=== PATIENT | female | born 1940 | race Caucasian/White ===

== ENCOUNTER 2024-02-26 19:20 | Inpatient (IN) | payer BC, SELFPAY ==
[2024-02-26 17:02] VITALS: BP 157/110; BMI 23.3
[2024-02-26] MEDS: MORPHINE SULFATE 4 MG IV (17:12)
[2024-02-26 17:20] LABS: % Basophils 0.9 % (0-2); % Eosinophils 1.4 % (0-6); % Immature Granulocytes 0.5 % (0-0.5); % Lymphocytes 28.9 % (20.5-51.1); % Monocytes 8.8 % (1.7-9.3); % Neutrophils 59.5 % (42.2-75.2); Absolute Basophils 0.1 10^3/uL (0-0.2); Absolute Eosinophils 0.1 10^3/uL (0-0.7); Absolute Lymphocytes 2.3 10^3/uL (1.2-3.4); Absolute Monocytes 0.7 10^3/uL (0.1-0.6); Absolute Neutrophils 4.8 10^3/uL (1.4-6.5); Hematocrit 36.3 % (37.0-47.0); Hemoglobin 11.8 g/dL (12.0-16.0); Mean Corp Hgb Conc. 32.5 g/dL (33.0-37.0); Mean Corpuscular Hgb 31.7 pg (27.0-31.0); Mean Corpuscular Volume 97.6 fL (81.0-99.0); Mean Platelet Volume 9.1 fL (7.4-10.4); Nucleated Red Blood Cells % 0 %; Platelet Count 322 10^3/uL (130-400); Red Blood Cell Count 3.72 10^6/uL (4.20-5.40); White Blood Cell Count 8.1 10^3/uL (4.8-10.8)
[2024-02-26 17:35] LABS: ALT (SGPT) 21 U/L (0-35); AST (SGOT) 32 U/L (14-36); Albumin 4.4 g/dl (3.5-5.0); Alkaline Phosphatase 67 U/L (38-126); Blood Urea Nitrogen 23 mg/dl (7-17); Calcium 9.7 mg/dl (8.4-10.2); Carbon Dioxide 23 mmol/L (22-30); Chloride 101 mmol/L (98-107); Estimated Creatinine Clearance 49 ml/min; Glucose 100 mg/dl (70-99); Potassium 4.1 mmol/L (3.5-5.1); Sodium 135 mmol/L (135-145); Total Bilirubin 0.4 mg/dl (0.2-1.3); Total Protein 6.8 g/dl (6.3-8.2); eGFR > 60.00
--- NOTE | 2024-02-26 17:50 | ED.GENMED ---
History of Present Illness
General
Chief Complaint: Fall
Source: patient and ambulance crew
Exam Limitations: none
Time Seen by Provider: 02/26/24 16:52
History of Present Illness
History of Present Illness:
84-year-old female presents after fall. She states she think she just slipped and fell onto her left side. Denies head injury. No neck pain. No back pain. EMS reports that she complains of left hip pain and gave her fentanyl IV. Patient
reports persistent pain. Otherwise healthy and lives independently.
Past History
Past History
ED Past Surgical History: Other (Lumpectomy)
Phy Exam
Physical Exam
Physical Exam:
CONSTITUTIONAL Vital signs reviewed, Patient alert and oriented to person, place and time. Well-appearing
HEAD atraumatic, normocephalic.
EYES eyelids normal to inspection, Extraocular muscles intact, Conjunctiva normal, Sclera normal.
NECK normal range of motion, Trachea midline, no jugular venous distention.
RESP no respiratory distress
BACK No obvious deformities
UPPER EXTREMITY Gross Range of motion normal, gross motor strength normal
LOWER EXTREMITY left hip is shortened externally rotated, no edema, moderate left groin and hip tenderness
NEURO Speech normal, No focal motor deficits include, [place] coma scale 15, Memory normal, Cranial Nerves intact to screening exam.
SKIN Skin warm, dry, and normal in color.
PSYCHIATRIC Patient oriented to person place and time, Normal affect.
Course
Orders/Labs/Results
Orders:
Orders
02/26/24 16:52
CR Hip - LT w/wo Pel 2-3 Vw* Urgent
Comment:
Reason For Exam: fall
Include a pelvis x-ray?: Yes
02/26/24 17:08
Morphine Sulfate 4 mg .ROUTE .STK-MED ONE
Morphine Sulfate 4 mg IV NOW STA
02/26/24 17:14
Complete Blood Count/With Diff Urgent
Comprehensive Metabolic Panel Urgent
Abnormal Lab Results
02/26/24
17:14
RBC 3.72 L 10^6/uL
(4.20-5.40)
Hgb 11.8 L g/dL
(12.0-16.0)
Hct 36.3 L %
(37.0-47.0)
MCH 31.7 H pg
(27.0-31.0)
MCHC 32.5 L g/dL
(33.0-37.0)
Absolute Monos (auto) 0.7 H 10^3/uL
(0.1-0.6)
BUN 23 H mg/dl
(7-17)
Glucose 100 H mg/dl
(70-99)
02/26/24 17:14
02/26/24 17:14
Vital Signs
Initial and Last Documented VS:
Initial Vital Signs
Temp Pulse Resp BP Pulse Ox
98.3 F 91 18 157/110 99
02/26/24 17:02 02/26/24 17:02 02/26/24 17:02 02/26/24 17:02 02/26/24 17:02
Last Documented Vital Signs
Temp Pulse Resp BP Pulse Ox
98.3 F 91 14 157/110 99
02/26/24 17:10 02/26/24 17:30 02/26/24 17:30 02/26/24 17:02 02/26/24 17:30
MDM/Problems Addressed
MDM/Problems Addressed:
Hip fracture, uncontrolled hypertension secondary to pain
*Pulse Oximetry
Patient hypoxic: no
*Anesthesiologist Interpretation
Rate: normal
Interpretation: normal
Rhythm: sinus
*Critical Care Note
Total Time (30-74mins, 75-104mins- exclusive of procedures): Not Applicable
Data Reviewed
Source: patient
Further Testing Considered But Not Given:
Consider CT of the head but no outward signs of trauma
Patient Management
Discussion with other providers: Hospitalist and Gynecology Teacher (Discussed with Dr. Ellis, left intertroch fracture)
Escalation/DeEscalation of care consider admission/obs:
82-year-old female with a hip fracture. Pain control. Admit. No signs of head trauma
ED Attending Note
-
Portions of this chart may have been created with voice recognition software.� Occasional wrong word or��sound alike� substitutions may have occurred due to the inherent limitations of voice recognition software.
Discharge Plan
Departure
Patient Disposition: Admit
Date of Disposition: 02/26/24
Time of Disposition: 17:53
Admit to: Med/Surg
Presentation/result/management discussed w/ accepting MD/DO: Hospitalist
Discharge Problem:
Closed hip fracture
Referrals:
Sami Ivan DO [Family Provider] -
Interventions
Interventions:
*Risk Screen - Suicide Last Done: 02/26/24 17:02
*General Assessment Last Done: 02/26/24 17:02
*Neglect/Abuse Screening Last Done: 02/26/24 17:02
ED- Fall Risk Assessment Last Done: 02/26/24 17:02
*ED COVID-19 Vaccine History Last Done: 02/26/24 17:57
ED-Musculoskeletal Assessment Last Done: 02/26/24 17:29
ED- Neurological Assessment Last Done: 02/26/24 17:02
ED-Skin Assessment Last Done: 02/26/24 17:09
Discharge Date and Time
Print Language: OCCITAN
[2024-02-26 18:04] VITALS: BP 155/86
--- NOTE | 2024-02-26 18:27 | HPS.HSE ---
Family Physician
-
Family Physician: Sami Ivan
Chief Complaint
-
fall, left hip pain
History of Present Illness
85-year-old female past medical history of breast cancer s/p mastectomy here for follow-up. She lost her balance and fell onto her left hip with severe left hip pain. Denies dizziness or chest pain or shortness of breath.
She denies any cardiac problems. Denies any problems with anesthesia in the past.
She drinks 2 glasses of 4 ounces whiskey per day. Denies smoking.
Medical History
Past Medical History
Past Medical History: Reports Other (breast cancer )
Past Surgical History: Reports Other (Mastectomy)
Social History
Tobacco: Non-smoker
Alcohol: Daily
Drug: None
Family History
Family History: Not pertinent
Allergies / Home Medications
Allergies reflects when Allergies were last updated in [facility].
Home Medications with original date entered in [facility]
Allergy/Medication List:
Allergies
Allergy/AdvReac Type Severity Reaction Status Date / Time
No Known Allergies Allergy Unverified 02/26/24 17:09
Home Medications
anastrozole 1 mg tablet 1 mg PO DAILY 02/26/24
Review of Systems
-
History Source: Patient
A 12 point ROS was completed and negative except as noted: Yes
Constitutional: Reports No Symptoms
EENT: Reports No Symptoms
Respiratory: Reports No Symptoms
Cardiac: Reports No Symptoms
Abdomen/GI: Reports No Symptoms
: Reports No Symptoms
Musculoskeletal: Reports See HPI
Skin: Reports No Symptoms
Neurological: Reports No Symptoms
Endocrine: Reports No Symptoms
Hematologic/Lymphatic: Reports No Symptoms
Psych: Reports No Symptoms
Physical Exam
Vital Signs
Vital Signs
Temp Pulse Resp BP Pulse Ox
98.3 F 91 14 157/110 99
02/26/24 17:10 02/26/24 17:30 02/26/24 17:30 02/26/24 17:02 02/26/24 17:30
Physical Exam
General: Well Developed, Well Nourished and No Apparent Distress
HEENT: NormoCephalic, Moist mucous membranes and Atraumatic
Respiratory: Clear
Cardiac: S1/S2 and Regular Rhythm; No Murmur or Rub
GI: Soft, Non Tender, Non Distended and Normal Bowel Sounds; No Organomegaly
Rectal: Deferred by Provider
Musculoskeletal: No Clubbing, No Cyanosis and No Edema
Skin: No Rash
Neuro: Nonfocal/grossly intact
Laboratory Results
-
02/26/24 17:14
02/26/24 17:14
Laboratory Results
Total Bilirubin 0.4 mg/dl (0.2-1.3) 02/26/24 17:14
AST 32 U/L (14-36) 02/26/24 17:14
ALT 21 U/L (0-35) 02/26/24 17:14
Alkaline Phosphatase 67 U/L (38-126) 02/26/24 17:14
Data Reviewed
-
Lab Data: Labs Reviewed by me
Old Records: Reviewed
Impression/Plan
-
IMPRESSION:
PLAN:
#Left hip fracture
-Tylenol, Dilaudid for pain
-Ortho consulted
-N.p.o. past midnight
-Patient without any significant medical history and low risk and can proceed to surgery
History of breast cancer
-Continue anastrozole
Full code
DVT prophylaxis�SCDs
N.p.o. past midnight
[2024-02-26] MEDS: DILAUDID 0.5 MG IV (18:47)
[2024-02-26 19:00] VITALS: BP 142/89
[2024-02-26 20:00] VITALS: BP 144/78
[2024-02-26 20:53] VITALS: BP 132/77; BMI 25.6
[2024-02-26] MEDS: TYLENOL 650 MG PO (22:18)
[2024-02-26 23:10] VITALS: BP 130/72
[2024-02-27] VITALS (14 sets, daily range): BP systolic 84–156; BP diastolic 52–126
[2024-02-27] MEDS: TYLENOL 650 MG PO ×2 (05:06→12:09)
--- NOTE | 2024-02-27 06:17 | PTCARENOTE ---
Patient received from ED via stretcher and was pulled to bed by staff. She was oriented to room and surroundings. See nursing assessment for physical findings. Ptient unabe to void. Bladder scan for 636 and straight cath for 700ml clear
yellow urine. Pain to left hip controlled with Tylenol as per prn order and ice
[2024-02-27 07:18] LABS: % Basophils 0.5 % (0-2); % Eosinophils 0.3 % (0-6); % Immature Granulocytes 0.4 % (0-0.5); % Lymphocytes 14.1 % (20.5-51.1); % Monocytes 9.6 % (1.7-9.3); % Neutrophils 75.1 % (42.2-75.2); Absolute Basophils 0.1 10^3/uL (0-0.2); Absolute Lymphocytes 1.3 10^3/uL (1.2-3.4); Absolute Monocytes 0.9 10^3/uL (0.1-0.6); Absolute Neutrophils 6.8 10^3/uL (1.4-6.5); Hematocrit 32.3 % (37.0-47.0); Hemoglobin 10.7 g/dL (12.0-16.0); Mean Corp Hgb Conc. 33.1 g/dL (33.0-37.0); Mean Corpuscular Hgb 32.2 pg (27.0-31.0); Mean Corpuscular Volume 97.3 fL (81.0-99.0); Mean Platelet Volume 9.3 fL (7.4-10.4); Nucleated Red Blood Cells % 0 %; Platelet Count 277 10^3/uL (130-400); Red Blood Cell Count 3.32 10^6/uL (4.20-5.40); White Blood Cell Count 9.1 10^3/uL (4.8-10.8)
[2024-02-27 07:38] LABS: ALT (SGPT) 20 U/L (0-35); AST (SGOT) 30 U/L (14-36); Albumin 3.8 g/dl (3.5-5.0); Alkaline Phosphatase 49 U/L (38-126); Blood Urea Nitrogen 22 mg/dl (7-17); Carbon Dioxide 23 mmol/L (22-30); Chloride 99 mmol/L (98-107); Estimated Creatinine Clearance 57 ml/min; Glucose 102 mg/dl (70-99); Potassium 4.3 mmol/L (3.5-5.1); Sodium 132 mmol/L (135-145); Total Protein 6.2 g/dl (6.3-8.2); eGFR > 60.00
--- NOTE | 2024-02-27 09:28 | CON.ORTHO ---
Consultation
-
Date/Time Consultation Requested: Feb 20
Date/Time Consultation Performed: Feb 20
Requesting Provider: Urban
Performing Provider: Naveen for Ritting
Reason for Consultation: Left hip Fracture
Consultation - Orthopedics
History
HPI
Requested in consultation by Dr. Duggan to this very [id number] white female with PMH of breast ca s/p mastectomy. unfortunately she lost her balance last evening and fell mechanically onto her left side. She was unable to get to her
feet and ambulate therefore she was transported here to the ER at with plain radiographs confirmed an IT fracture of her left proximal femur. She denied a prodrome, LOC, or head strike. denies any previous issues or injuries to the left hip.
We have been requested for the consideration of surgical correction
Past Medical History
Breat ca
Past Surgical History
Mastectomy
Social History
Tobacco: Non-smoker
Alcohol: Daily
Drug: None and
Family History
Family History: Not pertinent
Allergies / Home Medications
Allergy/AdvReac Type Severity Reaction Status Date / Time
No Known Allergies Allergy Unverified 02/26/24 17:09
�Medication �Instructions �Recorded
anastrozole 1 mg tablet 1 mg PO DAILY 02/26/24
ascorbic acid (vitamin C) 1,000 mg 1,000 mg PO DAILY 02/27/24
tablet,extended release (Vitamin C
ER)
aspirin 81 mg capsule 81 mg PO DAILY 02/27/24
biotin 1 mg capsule 1 mg PO DAILY 02/27/24
calcium 600 mg (as 1 tab PO DAILY 02/27/24
carbonate)-vitamin D3 20 mcg (800
unit) tablet (Caltrate with
Vitamin D3)
cholecalciferol (vitamin D3) 25 25 mcg PO DAILY 02/27/24
mcg (1,000 unit) tablet (Vitamin
D3)
milk thistle 175 mg capsule 250 mg PO DAILY 02/27/24
omega 8-utm-kng-fish oil 900 1,250 cap PO DAILY 02/27/24
mg-1,400 mg capsule,delayed release
pediatric multivitamin 1 tab PO DAILY 02/27/24
no.203-ferrous sulfate 18 mg
chewable tablet (Flintstones with
Iron)
vitamin B complex 1 tab PO DAILY 02/27/24
Vital Signs / Lab Results
Temp Pulse Resp BP Pulse Ox
98.4 F 93 18 111/65 97
02/27/24 06:49 02/27/24 06:49 02/27/24 06:49 02/27/24 06:49 02/27/24 06:49
02/27/24 05:41
02/27/24 05:41
Assessment / Plan
PE: Afeb. At bed rest with and daughter at the bedside. Left hip skin is intact. LLE short and ER. Generalized pain to palpation about the left hip. + logroll LLE. Deferred range of motion due to known fracture. Knee is nontender. Calf
is soft and nontender. DNVI LLE
Xrays: IT Fracture LEFT Proximal femur
Impression: REAL
Plan: At length bedside discussion with the patient, her , and daughter, yields understanding to the nature of her left hip fracture and our proposed treatment recommendations. Nonoperative and operative management were discussed at length,
including the RBAs of each management option. She has been cleared by the primary team to proceed to the OR. After discussing and accepting all the proposed risks of surgery they have agreed to proceed with surgical correction. We will plan for a
bit later today as the OR and Dr. Dhillon's availability permits for gamma nail fixation of her left femur. We did discuss the postop and rehab course, and will appreciate CM assistance with disposition. surgical and blood consents have been signed
and placed to the patient's chart. Operative site has been marked as the left hip. Patient will remain NPO. T&S requested. ABX manager utilization. OR aware. Will follow
[2024-02-27] MEDS: D5/0.9% SODIUM CHLORIDE 500 IV (11:58)
--- NOTE | 2024-02-27 12:29 | W.PN.HOSP.TC ---
Today's Communication/Plan
-
NPO for OR with orthopedics today
Assessment / Plan
Assessment / Plan
Assessment:
Mechanical fall with acute L proximal femur fracture
- Xray: Comminuted, displaced and angulated intertrochanteric fracture of the proximal left femur.
- pain control
- NPO for gamma nail fixation left femur
- EKG ordered and reviewed: NSR
- RCRI: 0 (3.9% risk of MACE), no additional testing indicated, low to intermediate risk
Hx of breast cancer
- continue anastrozole
DVT ppx: SCDs
Code: Full
Anticipated Discharge: > 48 hours
Subjective/Interval History
-
Date of Service: February 27, 2024
resting comfortably, in bed
no complaints
Objective Data
-
Labs:
Laboratory Results
02/27/24
05:41
WBC 9.1
Hgb 10.7 L
Hct 32.3 L
Plt Count 277
Sodium 132 L
Potassium 4.3
Chloride 99
Carbon Dioxide 23
BUN 22 H
Creatinine 0.5 L
Glucose 102 H
Calcium 9.0
Total Bilirubin 1.0
AST 30
ALT 20
Alkaline Phosphatase 49
Vital Signs:
Vital Signs
Temp Pulse Resp BP Pulse Ox
98.4 F 93 18 111/65 97
02/27/24 06:49 02/27/24 06:49 02/27/24 06:49 02/27/24 06:49 02/27/24 06:49
I&O
02/26/24 02/27/24 02/28/24
06:59 06:59 06:59
Intake Total 240 / 240
Output Total 700 / 700
Balance -460 / -460
Physical Exam
-
General: No Apparent Distress
HEENT: Normocephalic and Atraumatic
Respiratory: Negative Wheezes
Cardiac: Regular Rhythm and S1/S2
GI: Soft and Nontender
Musculoskeletal: Other (LLE short, externally rotated)
Neuro: AO x 3
Hematologic / Lymphatic: No Lymphadenopathy
Psych: Calm
Data Reviewed
-
Total Time Spent with Patient (in minutes): 42
Labs: Labs Reviewed by me
--- NOTE | 2024-02-27 15:07 | CM ---
Met with pt and her daughter at bedside
Pt reports she lives with her in a split-level home with her ; no steps to enter, 12 steps to 2nd fl
Independent at baseline, ambulates without device, drives
DME - single point cane, rolling walker, raised toilet seat
SNF/HH - denies past hx
PCP - Sami Ivan
Pharm - [facility]
OR today for repair of fx hip
PT/OT evals pend post -op
Given list of SNF options to review from Medicare.gov
Plan - TBD post - operatively; anticipate SNF at discharge
--- NOTE | 2024-02-27 16:45 | PTCARENOTE ---
Telephone report given to [employer]OR[employer]NY Perez @16:45; transport arrived at 16:55 and brought patient in bed with chart; insisted on waiting in SDS/OR waiting area, Transport stated they will show him where to wait and will alert PACU staff of same.
[2024-02-27] MEDS: DILAUDID 0.25 MG IV ×3 (18:37→19:21)
[2024-02-27] MEDS: D5/0.9% SODIUM CHLORIDE IV (21:56)
[2024-02-27] MEDS: COLACE 100 MG PO (22:13)
[2024-02-27] MEDS: NSS 500 IV (22:24)
[2024-02-27] MEDS: ANCEF 5 IV (23:25)
[2024-02-27] MEDS: FLUSH (NSS) 2 FLUSH IV (23:26)
[2024-02-27] MEDS: NORMOSOL-R/PLASMALYTE-A 1000 IV (23:26)
[2024-02-28] VITALS (7 sets, daily range): BP systolic 75–123; BP diastolic 28–69; PULSE 95–110; O2SAT 98
--- NOTE | 2024-02-28 05:41 | W.PN.ORTHO ---
Today's Communication / Plan
-
84-year-old female POD #1 Left Hip Gamma Nail 02/27/[address] Dhillon.
- WBAT LLE with use of walker for assistance.
- PT/OT.
- ASA 325 mg once daily x 4 weeks for DVT prophylaxis.
- Hemoglobin pending this AM. Continue to monitor.
- Pain control per primary team.
- CM regarding discharge planning.
- Orthopedic surgery will continue to follow.
Assessment
.
Distal Motor Intact: Yes
Dressing:
Aquacel dressings intact with scant contained bloody drainage.
Calf is soft and nontender to palpation. NVI distally.
Assessment:
POD #1 LEFT Hip Gamma Nail 02/27/[address] Dhillon.
Plan
.
Surgery / Date: Left Hip Gamma Nail 02/27/[address] Dhillon
DVT Prophylaxis: Aspirin
Activity:
Out of bed.
PT/OT
Discharge Information:
Appreciate CM.
Subjective
.
.:
Patient resting comfortably in bed. Denies any new complaints or concerns at this time. Denies any significant left hip pain.
Vital Signs and Labs
.
Vital Signs and Labs:
Temp Pulse Resp BP Pulse Ox
97.4 F 98 16 119/68 97
02/28/24 03:01 02/28/24 03:01 02/28/24 03:01 02/28/24 03:01 02/28/24 03:01
--- NOTE | 2024-02-28 06:01 | PTCARENOTE ---
Patient received from PACU via bed. Ox3, HRR BS CTA. L hip dressing with drainage as per PACU report. Throughout shift Superior dressing has leaked. As per TT to Dr. Garcia, covering Ortho, dressing changed. Scant drainage noted to this dressing
at 6am. BP to 86/58 HR 114. NSS 500ml bolus as per DEMOLITION HAMMER OPERATOR, covering house. BP 119/68 HR 98. NV check intact. Pain at patient tolerable level. Patient voiding adequately on bedpan. Tolerating crackers and juice.
[2024-02-28 07:02] LABS: Hematocrit 28.4 % (37.0-47.0); Mean Corp Hgb Conc. 31.7 g/dL (33.0-37.0); Mean Corpuscular Hgb 32.5 pg (27.0-31.0); Mean Corpuscular Volume 102.5 fL (81.0-99.0); Mean Platelet Volume 10.2 fL (7.4-10.4); Platelet Count 261 10^3/uL (130-400); Red Blood Cell Count 2.77 10^6/uL (4.20-5.40); Red Cell Dist. Width 13.2 % (11.5-14.5); White Blood Cell Count 15.4 10^3/uL (4.8-10.8)
[2024-02-28 07:16] LABS: Blood Urea Nitrogen 22 mg/dl (7-17); Calcium 8.5 mg/dl (8.4-10.2); Carbon Dioxide 24 mmol/L (22-30); Chloride 101 mmol/L (98-107); Estimated Creatinine Clearance 57 ml/min; Glucose 139 mg/dl (70-99); Potassium 4.7 mmol/L (3.5-5.1); Sodium 135 mmol/L (135-145); eGFR > 60.00
[2024-02-28] MEDS: ASPIRIN 325 MG PO (08:38)
[2024-02-28] MEDS: ANCEF 5 IV (08:38)
[2024-02-28] MEDS: COLACE 100 MG PO ×2 (08:38→19:58)
[2024-02-28] MEDS: ROXICODONE 5 MG PO (08:57)
--- NOTE | 2024-02-28 11:58 | W.PN.HOSP.TC ---
Today's Communication/Plan
-
continue post-op care
DC planning to SNF
Assessment / Plan
Assessment / Plan
Assessment:
Mechanical fall with acute L proximal femur fracture
- Xray: Comminuted, displaced and angulated intertrochanteric fracture of the proximal left femur.
- s/p Left Hip Gamma Nail 02/27/2024 (Ritting)
- continue pain control
- WBAT LLE with use of walker for assistance.
- PT/OT - SNF recommended
- ASA 325 mg once daily x 4 weeks for DVT prophylaxis.
Acute blood loss anemia on chronic anemia
- monitor
Hx of breast cancer
- continue anastrozole
Hyponatremia - resolved
DVT ppx: SCDs
Code: Full
Anticipated Discharge: 24 - 48 hours
Subjective/Interval History
-
Date of Service: February 28, 2024
no complaints presently
Objective Data
-
Labs:
Laboratory Results
02/28/24
05:44
WBC 15.4 H
Hgb 9.0 L
Hct 28.4 L
Plt Count 261
Sodium 135
Potassium 4.7
Chloride 101
Carbon Dioxide 24
BUN 22 H
Creatinine 0.6
Glucose 139 H
Calcium 8.5
Vital Signs:
Vital Signs
Temp Pulse Resp BP Pulse Ox
98.1 F 94 16 106/57 98
02/28/24 07:35 02/28/24 07:35 02/28/24 07:35 02/28/24 07:35 02/28/24 07:35
I&O
02/27/24 02/28/24 02/29/24
06:59 06:59 06:59
Intake Total 240 / 240 2205 / 2205
Output Total 700 / 700 400 / 400
Balance -460 / -460 1805 / 1805
Physical Exam
-
General: No Apparent Distress
HEENT: Normocephalic and Atraumatic
Respiratory: Negative Wheezes
Cardiac: Regular Rhythm and S1/S2
GI: Soft and Nontender
Neuro: AO x 3
Hematologic / Lymphatic: No Lymphadenopathy
Psych: Calm
Data Reviewed
-
Total Time Spent with Patient (in minutes): 41
Labs: Labs Reviewed by me
[2024-02-28] MEDS: NORMOSOL-R/PLASMALYTE-A IV (14:49)
--- NOTE | 2024-02-28 15:35 | CM ---
Met with pt and her daughter Joanna ([phone]) at bedside
Discussed PT/OT recs - SNF
Family chose - [facility], [place], [facility], [facility] and [facility]
Referral sent in [facility] for [place] and [facility]
Called and LM with admissions for [place] and [facility] - referral/checking bed availability
Will need auth
Plan - anticipate SNF when medically ready
[2024-02-28] MEDS: SENOKOT 8.6 MG PO (22:07)
[2024-02-29] VITALS (9 sets, daily range): BP systolic 90–115; BP diastolic 51–79
[2024-02-29 07:22] LABS: Hematocrit 20.7 % (37.0-47.0); Hemoglobin 6.8 g/dL (12.0-16.0); Mean Corp Hgb Conc. 32.9 g/dL (33.0-37.0); Mean Corpuscular Hgb 32.4 pg (27.0-31.0); Mean Corpuscular Volume 98.6 fL (81.0-99.0); Mean Platelet Volume 9.5 fL (7.4-10.4); Platelet Count 223 10^3/uL (130-400); Red Cell Dist. Width 13.2 % (11.5-14.5); White Blood Cell Count 9.4 10^3/uL (4.8-10.8)
[2024-02-29 07:44] LABS: Blood Urea Nitrogen 31 mg/dl (7-17); Calcium 8.4 mg/dl (8.4-10.2); Carbon Dioxide 28 mmol/L (22-30); Chloride 100 mmol/L (98-107); Estimated Creatinine Clearance 43 ml/min; Glucose 113 mg/dl (70-99); Potassium 4.5 mmol/L (3.5-5.1); Sodium 133 mmol/L (135-145); eGFR > 60.00
--- NOTE | 2024-02-29 08:12 | W.PN.ORTHO ---
Today's Communication / Plan
-
84-year-old female POD #2 Left Hip Gamma Nail 02/27/[address] Dhillon.
- WBAT LLE with use of walker for assistance.
- PT/OT.
- ASA 325 mg once daily x 4 weeks for DVT prophylaxis.
- Hemoglobin this AM 6.8. Hemoglobin yesterday 9.0. Primary team has ordered 2 units PRBC. Continue to monitor.
- Pain control per primary team. Appreciate the primary team, continue Tx.
- CM regarding discharge planning.
- Dressing to remain intact 7-10 days post-operatively.
- Kimberly out at 2 weeks (SNF or office). If kimberly out at SNF, outpatient Ortho follow-up in 4 weeks.
- Orthopedic surgery will sign off at this time. Please reengage with any further questions or concerns.
Assessment
.
Distal Motor Intact: Yes
Dressing:
Aquacel dressings intact with scant contained bloody drainage.
Calf is soft and nontender to palpation. NVI distally.
Assessment:
POD #2 LEFT Hip Gamma Nail 02/27/[address] Dhillon.
Plan
.
Surgery / Date: Left Hip Gamma Nail 02/27/[address] Dhillon
DVT Prophylaxis: Aspirin
Activity:
Out of bed.
PT/OT
Discharge Information:
Appreciate CM.
Subjective
.
.:
Patient resting comfortably in bed. Reports some lightheadedness/dizziness upon ambulation yesterday with PT/OT. Reports left hip pain controlled at this time. Hemoglobin this AM 6.8. Primary team has ordered 2 units PRBC.
Vital Signs and Labs
.
Vital Signs and Labs:
Lab Results
02/29/24 06:14
02/29/24 06:14
Temp Pulse Resp BP Pulse Ox
98.5 F 103 18 106/59 97
02/28/24 19:00 02/28/24 19:00 02/28/24 19:00 02/28/24 19:00 02/28/24 19:45
[2024-02-29] MEDS: ARIMIDEX 1 MG PO (09:12)
[2024-02-29] MEDS: ASPIRIN 325 MG PO (09:13)
[2024-02-29] MEDS: COLACE 100 MG PO ×2 (09:13→19:46)
[2024-02-29] MEDS: TYLENOL 650 MG PO (09:17)
[2024-02-29] MEDS: ROXICODONE 5 MG PO (09:17)
--- NOTE | 2024-02-29 09:18 | W.PN.HOSP.TC ---
Today's Communication/Plan
-
2 unit PRBC
follow AM Hb
DC planning to SNF
Assessment / Plan
Assessment / Plan
Assessment:
Mechanical fall with acute L proximal femur fracture
- Xray: Comminuted, displaced and angulated intertrochanteric fracture of the proximal left femur.
- s/p Left Hip Gamma Nail 02/27/2024 (Ritting)
- continue pain control
- WBAT LLE with use of walker for assistance.
- PT/OT - SNF recommended
- ASA 325 mg once daily x 4 weeks for DVT prophylaxis.
Acute blood loss anemia on chronic anemia
- Hb 6.8 today; 2 units PRBC ordered - requires intensive vitals monitoring for complications
Hx of breast cancer
- continue anastrozole
Hyponatremia - resolved
DVT ppx: SCDs
Code: Full
Anticipated Discharge: 24 - 48 hours
Subjective/Interval History
-
Date of Service: February 29, 2024
no acute complaints at present
Objective Data
-
Labs:
Laboratory Results
02/29/24
06:14
WBC 9.4
Hgb 6.8 L* D
Hct 20.7 L*
Plt Count 223
Sodium 133 L
Potassium 4.5
Chloride 100
Carbon Dioxide 28
BUN 31 H
Creatinine 0.8
Glucose 113 H
Calcium 8.4
Vital Signs:
Vital Signs
Temp Pulse Resp BP Pulse Ox
98.5 F 103 18 106/59 97
02/28/24 19:00 02/28/24 19:00 02/28/24 19:00 02/28/24 19:00 02/28/24 19:45
I&O
02/28/24 02/29/24 03/01/24
06:59 06:59 06:59
Intake Total 2204 / 5 1590 / 1590
Output Total 400 / 400
Balance 1805 / 1805 1590 / 1590
Physical Exam
-
General: No Apparent Distress
HEENT: Normocephalic and Atraumatic
Respiratory: Negative Wheezes
Cardiac: Regular Rhythm and S1/S2
GI: Soft and Nontender
Musculoskeletal: No Edema
Neuro: AO x 3
Hematologic / Lymphatic: No Lymphadenopathy
Psych: Calm
Data Reviewed
-
Total Time Spent with Patient (in minutes): 51
[2024-03-01 07:00] VITALS: BP 126/63
[2024-03-01 07:20] LABS: Blood Urea Nitrogen 23 mg/dl (7-17); Calcium 8.5 mg/dl (8.4-10.2); Carbon Dioxide 26 mmol/L (22-30); Chloride 103 mmol/L (98-107); Estimated Creatinine Clearance 49 ml/min; Glucose 108 mg/dl (70-99); Potassium 4.5 mmol/L (3.5-5.1); Sodium 135 mmol/L (135-145); eGFR > 60.00
[2024-03-01 07:42] LABS: Hematocrit 27.8 % (37.0-47.0); Hemoglobin 9.5 g/dL (12.0-16.0); Mean Corp Hgb Conc. 34.2 g/dL (33.0-37.0); Mean Corpuscular Hgb 32.1 pg (27.0-31.0); Mean Corpuscular Volume 93.9 fL (81.0-99.0); Mean Platelet Volume 9.5 fL (7.4-10.4); Platelet Count 232 10^3/uL (130-400); Red Blood Cell Count 2.96 10^6/uL (4.20-5.40); Red Cell Dist. Width 14.9 % (11.5-14.5); White Blood Cell Count 9.3 10^3/uL (4.8-10.8)
[2024-03-01] MEDS: COLACE 100 MG PO ×2 (08:16→20:01)
[2024-03-01] MEDS: ASPIRIN 325 MG PO (08:16)
[2024-03-01] MEDS: ARIMIDEX 1 MG PO (08:16)
[2024-03-01] MEDS: ROXICODONE 5 MG PO (08:17)
[2024-03-01] MEDS: TYLENOL 650 MG PO (08:18)
[2024-03-01 10:45] VITALS: BP 114/59; PULSE 84
[2024-03-01 10:55] VITALS: BP 114/59; PULSE 84
--- NOTE | 2024-03-01 10:55 | CM ---
Addendum entered by Kayli Lloyd 03/01/24 15:48:
Per Kathy no bed available at [facility]
Spoke to daughter Malissa Posadas additional referrals placed in careport to [facility] SNF's
Call her with updates.
Original Note:
Patient and seen at bedside.
Discussed [facility] accepted, and they are agreeable to this SNF - CM called Kathy liaison to see about bed availability
Potential d/c tomorrow.
Will need to get insurance authorization
PLAN: SNF, pending bed availability, will need insurance authorization
--- NOTE | 2024-03-01 12:39 | W.PN.HOSP.TC ---
Today's Communication/Plan
-
monitor CBC
continue PT/OT
DC planning to SNF
Assessment / Plan
Assessment / Plan
Assessment:
Mechanical fall with acute L proximal femur fracture
- Xray: Comminuted, displaced and angulated intertrochanteric fracture of the proximal left femur.
- s/p Left Hip Gamma Nail 02/27/2024 (Ritting)
- continue pain control
- WBAT LLE with use of walker for assistance.
- PT/OT - SNF recommended
- ASA 325 mg once daily x 4 weeks for DVT prophylaxis.
Acute blood loss anemia on chronic anemia
- Hb 9.5 after 2 units PRBC. Monitor CBC
Hx of breast cancer
- continue anastrozole
Hyponatremia - resolved
DVT ppx: SCDs
Code: Full
Anticipated Discharge: Within 24 hours
Subjective/Interval History
-
Date of Service: March 01, 2024
no complaints
Hb 9.5 after 2 units PRBC
Objective Data
-
Labs:
Laboratory Results
03/01/24
05:43
WBC 9.3
Hgb 9.5 L D
Hct 27.8 L
Plt Count 232
Sodium 135
Potassium 4.5
Chloride 103
Carbon Dioxide 26
BUN 23 H
Creatinine 0.7
Glucose 108 H
Calcium 8.5
Vital Signs:
Vital Signs
Temp Pulse Resp BP Pulse Ox
98.4 F 84 16 126/63 97
03/01/24 07:00 03/01/24 07:00 03/01/24 07:00 03/01/24 07:00 03/01/24 07:00
I&O
02/29/24 03/01/24 03/02/24
06:59 06:59 06:59
Intake Total 1590 / 1590 1680 / 1680
Output Total 800 / 800
Balance 1590 / 1590 880 / 880
Physical Exam
-
General: No Apparent Distress
HEENT: Normocephalic and Atraumatic
Respiratory: Negative Wheezes
Cardiac: Regular Rhythm and S1/S2
GI: Soft and Nontender
Genito-urinary: No Costovertebral Tender
Musculoskeletal: No Edema
Neuro: AO x 3
Hematologic / Lymphatic: No Lymphadenopathy
Psych: Calm
Data Reviewed
-
Total Time Spent with Patient (in minutes): 42
Labs: Labs Reviewed by me
[2024-03-01 15:45] VITALS: BP 115/69
[2024-03-01 23:20] VITALS: BP 115/63
[2024-03-02] MEDS: ROXICODONE 5 MG PO ×2 (05:08→08:49)
[2024-03-02 07:00] VITALS: BP 112/68
[2024-03-02 07:08] LABS: Blood Urea Nitrogen 25 mg/dl (7-17); Calcium 8.8 mg/dl (8.4-10.2); Carbon Dioxide 25 mmol/L (22-30); Chloride 103 mmol/L (98-107); Estimated Creatinine Clearance 57 ml/min; Glucose 103 mg/dl (70-99); Potassium 4.5 mmol/L (3.5-5.1); Sodium 136 mmol/L (135-145); eGFR > 60.00
[2024-03-02 07:29] LABS: Hematocrit 28.3 % (37.0-47.0); Hemoglobin 9.5 g/dL (12.0-16.0); Mean Corp Hgb Conc. 33.6 g/dL (33.0-37.0); Mean Corpuscular Hgb 32.1 pg (27.0-31.0); Mean Corpuscular Volume 95.6 fL (81.0-99.0); Mean Platelet Volume 9.3 fL (7.4-10.4); Platelet Count 287 10^3/uL (130-400); Red Blood Cell Count 2.96 10^6/uL (4.20-5.40); Red Cell Dist. Width 14.1 % (11.5-14.5); White Blood Cell Count 7.6 10^3/uL (4.8-10.8)
[2024-03-02] MEDS: ARIMIDEX 1 MG PO (08:49)
[2024-03-02] MEDS: COLACE 100 MG PO (08:49)
[2024-03-02] MEDS: ASPIRIN 325 MG PO (08:49)
[2024-03-02] MEDS: TYLENOL 650 MG PO (08:53)
--- NOTE | 2024-03-02 11:20 | CM ---
Addendum entered by [employer] 03/02/24 12:56:
Transport at 2:15PM
Family and facility updated
Addendum entered by [employer] 03/02/24 12:22:
Pt and updated
[facility] at given auth info
Given IMM
Transport to be arranged
Plan - Transfer to [facility]
R - [phone]
F - [phone]
Addendum entered by [employer]ine 03/02/24 11:52:
Called to obtain auth
Spoke with [facility]
Approved for skilled care - level 1 from 03/02 to 03/06/2024
NRD 03/06 - call [phone]
Auth # - [id number]
Amb auth # - [id number]
Original Note:
Pt medically ready for discharge
[facility] - no bed today
[facility] - can accept
Updated daughter - she reviewed with family - agreeable to [facility]
Will obtain auth
Dr Andrade updated
Will need Covid
Plan - transfer to [facility] when bed obtained
[2024-03-02 11:39] VITALS: BP 125/68; PULSE 92
[2024-03-02 12:19] LABS: COVID-19 Antigen Negative (Negative)
--- NOTE | 2024-03-02 13:35 | W.PN.HOSP.TC ---
Today's Communication/Plan
-
dc to SNF
Assessment / Plan
Assessment / Plan
Assessment:
Mechanical fall with acute L proximal femur fracture
- Xray: Comminuted, displaced and angulated intertrochanteric fracture of the proximal left femur.
- s/p Left Hip Gamma Nail 02/27/2024 (R[place])
- continue pain control
- WBAT LLE with use of walker for assistance.
- PT/OT - SNF recommended
- ASA 325 mg once daily x 4 weeks for DVT prophylaxis.
Acute blood loss anemia on chronic anemia
- Hb 9.5 after 2 units PRBC. Monitor CBC
Hx of breast cancer
- continue anastrozole
Hyponatremia - resolved
DVT ppx: SCDs
Code: Full
More than 30 minutes spent in discharge including
Final examination of the patient
Summarizing hospital stay
Instructions for continuing care to all relevant caregivers
Preparation of discharge records, prescriptions, and referral forms
Total time spent (in minutes): 42
Anticipated Discharge: Today
Subjective/Interval History
-
Date of Service: March 02, 2024
resting comfortably
Objective Data
-
Labs:
Laboratory Results
03/02/24
05:21
WBC 7.6
Hgb 9.5 L
Hct 28.3 L
Plt Count 287 D
Sodium 136
Potassium 4.5
Chloride 103
Carbon Dioxide 25
BUN 25 H
Creatinine 0.5 L
Glucose 103 H
Calcium 8.8
Vital Signs:
Vital Signs
Temp Pulse Resp BP Pulse Ox
98.7 F 91 16 112/68 96
03/02/24 07:00 03/02/24 07:00 03/02/24 07:00 03/02/24 07:00 03/02/24 07:00
I&O
03/01/24 03/02/24 03/03/24
06:59 06:59 06:59
Intake Total 1680 / 1680 960 / 960
Output Total 800 / 800
Balance 880 / 880 960 / 960
Physical Exam
-
General: No Apparent Distress
HEENT: Normocephalic and Atraumatic
Respiratory: Negative Wheezes
Cardiac: Regular Rhythm and S1/S2
GI: Soft and Nontender
Genito-urinary: No Costovertebral Tender
Musculoskeletal: No Edema
Neuro: AO x 3
Hematologic / Lymphatic: No Lymphadenopathy
Psych: Calm
Data Reviewed
-
Total Time Spent with Patient (in minutes): 42
Labs: Labs Reviewed by me
[2024-03-02 14:00] VITALS: BP 114/68
--- NOTE | 2024-03-02 15:59 | W.DS.TRANS ---
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
-
Discharge Instructions:
Discharge Diagnosis/Procedures Mechanical fall with acute L proximal femur
fracture s/p Left Hip Gamma Nail 02/27/2024
Diet Regular
Activity As tolerated
Additional Activity WBAT LLE with use of walker for assistance.
Bathing Restrictions None
Other Services OT,PT
Instructions:
Stand-Alone Forms:
Changes to Home Medications: No
Discharge Medications:
DC Medications w/original date entered in [employer]
anastrozole 1 mg tablet 1 mg PO DAILY 02/26/24
ascorbic acid (vitamin C) 1,000 mg tablet,extended release (Vitamin C ER) 1,000 mg PO DAILY 02/27/24
biotin 1 mg capsule 1 mg PO DAILY 02/27/24
calcium 600 mg (as carbonate)-vitamin D3 20 mcg (800 unit) tablet (Caltrate with Vitamin D3) 1 tab PO DAILY 02/27/24
cholecalciferol (vitamin D3) 25 mcg (1,000 unit) tablet (Vitamin D3) 25 mcg PO DAILY 02/27/24
milk thistle 175 mg capsule 250 mg PO DAILY 02/27/24
omega 9-ggm-drl-fish oil 900 mg-1,400 mg capsule,delayed release 1,250 cap PO DAILY 02/27/24
pediatric multivitamin no.203-ferrous sulfate 18 mg chewable tablet (Flintstones with Iron) 1 tab PO DAILY 02/27/24
vitamin B complex 1 tab PO DAILY 02/27/24
aspirin 325 mg tablet 325 mg PO DAILY #30 tabs 03/02/24
oxycodone 5 mg tablet 5 mg PO Q4HPRN PRN mild pain #10 tabs 03/02/24
Home Medication Changes
Pending Results: No
Total time spent discharging patient (in min): 41
== END 2024-03-02 14:45 | DRG 481 ==
LOC: 2 SOUTH 19:20
PROVIDERS: ADMITTING PHYSICIAN Hospitalist; ATTENDING PHYSICIAN Internal Medicine; CONSULT PHYSICIAN Orthopaedic Surgery Hand Surgery; EMERGENCY PHYSICIAN Emergency Medicine; FAMILY PHYSICIAN Family Medicine
PROC: 0QS706Z Reposition Left Upper Femur with Intramedullary Internal Fixation Device, Open Approach (ICD-10-PCS; 2024-02-27)
PROC: 30233N1 Transfusion of Nonautologous Red Blood Cells into Peripheral Vein, Percutaneous Approach (ICD-10-PCS; 2024-02-29)
DX: S72.142A Displaced intertrochanteric fracture of left femur, initial encounter for closed fracture (principal); D62 Acute posthemorrhagic anemia; E87.1 Hypo-osmolality and hyponatremia; W01.0XXA Fall on same level from slipping, tripping and stumbling without subsequent striking against object, initial encounter; Y93.01 Activity, walking, marching and hiking; Y92.009 Unspecified place in unspecified non-institutional (private) residence as the place of occurrence of the external cause; Z85.3 Personal history of malignant neoplasm of breast; Z90.10 Acquired absence of unspecified breast and nipple; Z79.811 Long term (current) use of aromatase inhibitors; Z79.82 Long term (current) use of aspirin; Z11.52 Encounter for screening for COVID-19
CPT/HCPCS: 73502; 76000; 80048; 80053; 85025; 85027; 86850; 86900; 86901; 86920; 87811; 93005; 96374; 97116; 97163; 97167; 97530; 97535; 99285; P9016